=== PATIENT | male | born 1965 | race Caucasian/White ===

== ENCOUNTER 2024-12-15 18:29 | Emergency (ER) | payer OTHER, SELFPAY ==
[2024-12-15 18:37] VITALS: BP 160/81
[2024-12-15 18:53] LABS: % Basophils 0.2 % (0-2); % Immature Granulocytes 0.5 % (0-0.5); % Monocytes 3.6 % (1.7-9.3); % Neutrophils 87.7 % (42.2-75.2); Absolute Immature Granulocytes 0.1 10^3/uL (0-0.05); Absolute Lymphocytes 0.9 10^3/uL (1.2-3.4); Absolute Monocytes 0.4 10^3/uL (0.1-0.6); Absolute Neutrophils 9.5 10^3/uL (1.4-6.5); Hematocrit 46.7 % (39.0-52.0); Hemoglobin 15.8 g/dL (13.0-18.0); Mean Corp Hgb Conc. 33.8 g/dL (33.0-37.0); Mean Corpuscular Hgb 30.7 pg (27.0-31.0); Mean Corpuscular Volume 90.7 fL (80.0-94.0); Mean Platelet Volume 9.7 fL (7.4-10.4); Nucleated Red Blood Cells % 0 % (-); Platelet Count 249 10^3/uL (130-400); Red Blood Cell Count 5.15 10^6/uL (4.70-6.10); Red Cell Dist. Width 14.6 % (11.5-14.5); White Blood Cell Count 10.8 10^3/uL (4.8-10.8)
[2024-12-15 19:16] LABS: AST (SGOT) 533 U/L (17-59); Albumin 5.1 g/dl (3.5-5.0); Alkaline Phosphatase 90 U/L (38-126); Blood Urea Nitrogen 17 mg/dl (9-20); Calcium 9.9 mg/dl (8.4-10.2); Carbon Dioxide 17 mmol/L (22-30); Chloride 105 mmol/L (98-107); Glucose 140 mg/dl (70-99); Lipase 878 U/L (23-300); Sodium 139 mmol/L (135-145); Total Bilirubin 0.9 mg/dl (0.2-1.3); Total Protein 7.6 g/dl (6.3-8.2); eGFR > 60.00
[2024-12-15 19:25] LABS: ALT (SGPT) 862 U/L (0-50)
[2024-12-15 21:40] VITALS: BP 148/82
--- NOTE | 2024-12-15 22:49 | ED.GENMED ---
History of Present Illness
General
Chief Complaint: Abdominal Symptoms
Time Seen by Provider: 12/15/24 22:11
History of Present Illness
History of Present Illness:
59-year-old male with history of diabetes, hypertension, hyperlipidemia presenting to the emergency department for nausea, vomiting, diarrhea. Patient reports symptoms started last evening after he went out to dinner. He reports that he has been
unable to tolerate any food or liquid by mouth since symptoms started. Denies any history of abdominal surgeries. Denies fever, chest pain, difficulty breathing. Denies any blood in the vomit. Notes generalized discomfort to the upper abdomen,
denies any significant pain. He is on Ozempic, however has been on this medication for several years, denies any recent adjustment of the medication. Denies any additional acute medical complaints
Past History
Past History
ED Past Medical History: CAD, HTN, Hypercholesterolemia and NIDDM
ED Past Surgical History: Cardiac
Social History
Tobacco: Smoker
Phy Exam
Physical Exam
Physical Exam:
General: Well-appearing, mild dryness to mucous membranes
HEENT: protecting airway
Neck: appears supple
CV: Normal heart rate, regular rhythm
Resp: No accessory muscle use, no increased work of breathing, lungs clear to auscultation bilaterally
Abd: Soft and non-distended, focal tenderness to the epigastric and right upper quadrant
Extremities: No deformities, no swelling
Neuro: alert, no focal neurologic deficit
: deferred
Rectal: deferred
Psych: Normal affect
Skin: Intact
Course
Orders/Labs/Results
Orders:
Orders
12/15/24 18:47
Complete Blood Count/With Diff Urgent
Comprehensive Metabolic Panel Urgent
Lipase Urgent
12/15/24 22:32
0.9% Sodium Chloride 1000 ml [Nss] 1,000 ml IV BOLUS
Ondansetron Injectable [Zofran] 4 mg IV NOW STA
Pantoprazole [Protonix IV] 40 mg IV NOW STA
US Abdomen Complete/Upper Urgent
Comment:
Reason For Exam: RUQ pain
12/16/24 00:02
CT Abd/pel Without Iv Or Oral Urgent
Reason For Exam: upper abdominal pain, elevated liver and panceas e
Abnormal Lab Results
12/15/24
18:47
RDW 14.6 H %
(11.5-14.5)
Abs Immat Gran (auto) 0.1 H 10^3/uL
(0-0.05)
Absolute Neuts (auto) 9.5 H 10^3/uL
(1.4-6.5)
Absolute Lymphs (auto) 0.9 L 10^3/uL
(1.2-3.4)
Neutrophils % 87.7 H %
(42.2-75.2)
Lymphocytes % 8.0 L %
(20.5-51.1)
Carbon Dioxide 17 L mmol/L
(22-30)
Glucose 140 H mg/dl
(70-99)
AST 533 H* U/L
(17-59)
ALT 862 H* U/L
(0-50)
Albumin 5.1 H g/dl
(3.5-5.0)
Lipase 878 H U/L
(23-300)
12/15/24 18:47
12/15/24 18:47
Vital Signs
Initial and Last Documented VS:
Initial Vital Signs
Temp Pulse Resp BP Pulse Ox
99.1 F 86 18 160/81 98
12/15/24 18:37 12/15/24 18:37 12/15/24 18:37 12/15/24 18:37 12/15/24 18:37
Last Documented Vital Signs
Temp Pulse Resp BP Pulse Ox
99.1 F 94 16 131/59 97
12/15/24 18:37 12/15/24 21:40 12/15/24 21:40 12/16/24 00:00 12/16/24 00:15
MDM/Problems Addressed
MDM/Problems Addressed:
59-year-old male with history of hypertension, hyperlipidemia, diabetes presenting for upper abdominal discomfort with persistent nausea and vomiting. Vital signs on arrival are significant for hypertension.
On exam patient is in no acute distress, does note episode of vomiting prior to my arrival. Focal tenderness in the epigastric and right upper quadrant abdomen. Patient had laboratory analysis obtained prior to my assessment which does show a
transaminitis and elevation of lipase. Given location of pain, concern for possible gallbladder pathology versus pancreatitis. Will obtain right upper quadrant ultrasound imaging. Will start patient IV fluids and Zofran, as well as pantoprazole.
Will continue to closely monitor.
23:40- Ultrasound does not visualize normal gallbladder. There is an indeterminant heterogenous hyperechoic soft tissue in the gallbladder fossa. No biliary ductal dilatation. Suspected hepatic inflammation. Will proceed with CT imaging for
further evaluation
02:45 -CT without any acute findings. Patient is reporting some interval improvement. He notes that he has since been able to tolerate p.o. Suspect pancreatic and liver inflammation from esophagitis and reactive from the nausea and vomiting.
Patient offered admission versus outpatient supportive therapy. He would prefer to go home. Will prescribe Zofran. Encouraged continued oral hydration. Also explained that he will need to follow-up with his doctor in the next several weeks for
repeat liver function testing and lipase to ensure an overall improvement. Return precautions discussed and patient verbalized understanding
*Critical Care Note
Total Time (30-74mins, 75-104mins- exclusive of procedures): Not Applicable
ED Attending Note
-
Portions of this chart may have been created with voice recognition software.� Occasional wrong word or��sound alike� substitutions may have occurred due to the inherent limitations of voice recognition software.
Discharge Plan
Departure
Prescriptions:
No Action
aspirin 325 mg Tablet
325 mg PO DAILY
alprazolam [Xanax] 0.5 mg Tablet
0.5 mg PO HS
metformin 1,000 mg Tablet
1,000 mg PO BID
lisinopril 5 mg Tablet
5 mg PO DAILY
metoprolol succinate [Toprol XL] 25 mg Tablet Extended Release 24 Hr
25 mg PO DAILY
pioglitazone [Actos] 30 mg Tablet
30 mg PO DAILY
ezetimibe [Zetia] 10 mg Tablet
10 mg PO QPM
rosuvastatin [Crestor] 40 mg Tablet
40 mg PO QPM
tadalafil 5 mg Tablet
5 mg PO DAILY
omega [id number] oil [Fish Oil] 1,000 (120-180) mg Capsule
1 cap PO DAILY
alpha lipoic acid 200 mg Capsule
200 mg PO DAILY
Jardiance 25 mg Tablet
25 mg PO DAILY
Ozempic 2 mg/dose (8 mg/3 mL) Pen Injector
2 mg SC ROJAS
Referrals:
Rajendra Fiore MD [Family Provider] -
Interventions
Interventions:
*Risk Screen - Suicide Last Done: 12/15/24 18:37
*General Assessment Last Done: 12/15/24 18:37
*Neglect/Abuse Screening Last Done: 12/15/24 18:37
*ED COVID-19 Vaccine History Last Done: 12/16/24 00:26
ZC-Dhhxpa-Jnbykzkqum Assessment Last Done: 12/15/24 23:30
Discharge Date and Time
Print Language: UKRAINIAN
[2024-12-15] MEDS: NSS 1000 IV (23:51)
[2024-12-15] MEDS: ZOFRAN 4 MG IV (23:52)
[2024-12-15] MEDS: PROTONIX IV 40 MG IV (23:52)
[2024-12-15 23:57] VITALS: BP 143/53
[2024-12-16] VITALS: BP 131/59
[2024-12-16 02:53] VITALS: BP 135/70
== END 2024-12-16 03:11 | disposition home or self-care (01) ==
LOC: EMR 18:29
PROVIDERS: Emergency Medicine; EMERGENCY PHYSICIAN Student in an Organized Health Care Education/Training Program; FAMILY PHYSICIAN Internal Medicine
DX: R11.2 Nausea with vomiting, unspecified (principal); R19.7 Diarrhea, unspecified; E11.9 Type 2 diabetes mellitus without complications; E78.00 Pure hypercholesterolemia, unspecified; I10 Essential (primary) hypertension; I25.10 Atherosclerotic heart disease of native coronary artery without angina pectoris; F17.200 Nicotine dependence, unspecified, uncomplicated; Z79.85 Long-term (current) use of injectable non-insulin antidiabetic drugs
CPT/HCPCS: 96374; 96375; 96361; 99284; 74176; 76700; 80053; 83690; 85025